=== PATIENT | female | born 1960 | race Hispanic/Latino ===

== ENCOUNTER 2017-03-26 13:15 | Observation (INO) | payer OTHER ==
[~2017-03-26] VITALS: Ht 160 cm; Wt 75.3 kg
--- OUTSIDE RECORDS SUMMARY | 2017-03-26 13:18 | XMS REPORT | Clinical Summary ---
Author Author [facility] Address Unknown Phone Unavailable Care Team Providers Care Foreign Exchange Dealer Name Role Phone Asked, Pcp PCP Unavailable Allergies No Known Allergies Current Medications Prescription Sig. Disp. Refills Start End Date Status Date PREMARIN 0.45 mg tablet 01/24/20 Active 17 losartan-hydrochlorothiaz 01/15/20 Active vimal (HYZAAR) 50-12.5 mg 17 per tablet zinc 50 mg tablet Take by mouth. Active calcium carbonate-vitamin Take 1 tablet by mouth 2 Active D2 500 mg(1,250mg) -200 (two) times a day. unit tablet cyanocobalamin 250 MCG Take 250 mcg by mouth Active tablet daily. aspirin (ECOTRIN) 81 MG Take 81 mg by mouth Active enteric coated tablet daily. riFAXimin (XIFAXAN) 550 Take 1 tablet (550 mg 42 tablet 0 02/14/19 02/28/19 mg tablet total) by mouth 3 (three) 18 18 times a day for 14 days. Active Problems Not on file Encounters Date Type Specialty Care Team Description 02/14/2017 Office Visit Gastroenterology Alyssa Gee MD Irritable bowel syndrome with diarrhea (Primary Dx) 09/07/2016 Telephone Gastroenterology Alyssa Gee MD after 03/25/2016 Social History Tobacco Use Types Packs/Day Years Used Date Never Smoker Smokeless Tobacco: Never Used Alcohol Use Drinks/Week oz/Week Comments Yes weekends Sex Assigned at Date Recorded Not on file Last Filed Vital Signs Vital Sign Reading Time Taken Blood Pressure 155/79 02/14/2017 2:47 PM CO FOUNDER AND PRESIDENT Pulse 62 02/14/2017 2:47 PM [employer] FOUND[employer] AND PRESIDENT Temperature - - Respiratory Rate - - Oxygen Saturation - - Inhaled Oxygen - - Concentration Weight 77 kg (169 lb 12.8 oz) 02/14/2017 2:47 PM [employer] PRESIDENT Height 160 cm (5' 3") 02/14/2017 2:47 PM [employer] FOUND[employer] AND PRESIDENT Body Mass Index 30.08 02/14/2017 2:47 PM [employer] FOUND[employer] AND PRESIDENT Plan of Treatment Health Maintenance Due Date Last Done Comments PAP SMEAR 1979 COLONOSCOPY 01/21/2008 MAMMOGRAM 01/21/2008 INFLUENZA VACCINE 09/12/2016 Results Not on fileafter 03/25/2016 Insurance Payer Benefit Subscriber ID Type Phone Address Plan / Group CIG[employer] CIGNA OPEN xxxxxxxxxxx HMO ACCESS/NET WORK
[2017-03-26] MEDS ORDERED: HYDROCHLOROTHIA25 MG PO (13:37)
[2017-03-26] MEDS ORDERED: PREMARIN0.625 MG PO (13:37)
[2017-03-26] MEDS ORDERED: LOSARTAN POTASS25 MG PO (13:37)
[2017-03-26] MEDS ORDERED: ASPIRIN 81 MG CHEW TAB PO ONE ×2 (14:00→16:00)
[2017-03-26 14:13] LABS: BASOPHILS % 0.4 % (0.0-1.0); EOSINOPHILS # (AUTO) 0.2 (0.0-0.4); EOSINOPHILS % 2.7 % (0.0-6.0); HEMATOCRIT 38.1 % (34.2-44.1); HEMOGLOBIN 12.7 g/dL (12.0-16.0); LYMPHOCYTES # (AUTO) 2.1 (1.0-3.2); LYMPHOCYTES % 27.1 % (18.0-39.1); MEAN CORPUSCULAR HEMOGLOBIN 29.8 pg (28-32); MEAN CORPUSCULAR HGB CONC 33.3 g/dL (31-35); MEAN CORPUSCULAR VOLUME 89.4 fL (81-99); MONOCYTES # (AUTO) 0.6 (0.2-0.8); MONOCYTES % 7.7 % (4.4-11.3); NEUTROPHILS # (AUTO) 4.7 (2.1-6.9); NEUTROPHILS % 61.4 % (38.7-80.0); PLATELET COUNT 214 x10e3/uL (140-360); RED BLOOD COUNT 4.26 x10e6/uL (3.6-5.1); RED CELL DISTRIBUTION WIDTH 12.5 % (11.7-14.4)
[2017-03-26 14:18] LABS: INR 1.01; PROTHROMBIN TIME 12.5 seconds (11.9-14.5)
[2017-03-26 14:19] LABS: PARTIAL THROMBOPLASTIN TIME 26.8 seconds (23.8-35.5)
[2017-03-26 14:29] LABS: ALANINE AMINOTRANSFERASE 17 IU/L (0-55); ALBUMIN 3.9 g/dL (3.5-5.0); ALKALINE PHOSPHATASE 64 IU/L (40-150); ANION GAP 12.8 mmol/L (8-16); BLOOD UREA NITROGEN 17 mg/dL (7-26); BUN/CREATININE RATIO 22 (6-25); CALCIUM 9.5 mg/dL (8.4-10.2); CARBON DIOXIDE 25 mmol/L (22-29); CHLORIDE 102 mmol/L (98-107); CREATINE KINASE 77 IU/L (29-168); CREATININE, SERUM 0.76 mg/dL (0.57-1.11); EST GLOMERULAR FILTRATION RATE > 60 ML/MIN (60-); GLUCOSE 88 mg/dL (74-118); POTASSIUM 3.8 mmol/L (3.5-5.1); SODIUM 136 mmol/L (136-145)
--- NOTE | 2017-03-26 14:30 | Diagnostic Imaging Report ---
PROCEDURE: CHEST SINGLE (PORTABLE) 1404 hrs. COMPARISON: None available for comparison. INDICATIONS: CHEST PAIN, RADIATING TO LEFT ARM FINDINGS: LUNGS: Clear. The pulmonary markings are normal. PLEURA: No effusions or pneumothorax. HEART \T\ MEDIASTINUM: Normal. BONES \T\ SOFT TISSUES: No focal osseous lesions. There is a centimeter size calcification adjacent to the left humeral head without evidence of donor site. Soft tissues are unremarkable. CONCLUSION: No acute cardiopulmonary process. Dictated by: Shar Louis M.D. on 03/26/2017 at 14:40 Electronically approved by: Shar Louis M.D. on 03/26/2017 at 14:40
[2017-03-26 14:53] LABS: BILIRUBIN,URINE NEGATIVE (NEGATIVE); CLARITY,URINE CLEAR (CLEAR); COLOR,URINE YELLOW (YELLOW); KETONES,URINE NEGATIVE (NEGATIVE); LEUKOCYTE ESTERASE ,URINE NEGATIVE (NEGATIVE); NITRITE,URINE NEGATIVE (NEGATIVE); PROTEIN,URINE DIPSTICK NEGATIVE (NEGATIVE); URINE UROBILINOGEN 0.2 mg/dL (0.2 - 1)
[2017-03-26 15:10] LABS: EPITHELIAL CELLS,URINE MODERATE /LPF
[2017-03-26] MEDS ORDERED: SODIUM CHLORIDE FLUSH 10 ML SYR INJ PRN (16:00)
[2017-03-26] MEDS ORDERED: ONDANSETRON HCL INJ 2 MG/ML VIAL IV PRN (16:00)
[2017-03-26] MEDS ORDERED: MORPHINE SULFATE 2 MG/ML SYR IV PRN (16:00)
--- OUTSIDE RECORDS SUMMARY | 2017-03-26 16:06 | XMS REPORT ---
[facility] Address Unknown Phone Unavailable Care Team Providers Care Rotary Shear Operator Name Role Phone BETZY DIAZ Unavailable Unavailable Problems This patient has no known problems. Allergies, Adverse Reactions, Alerts This patient has no known allergies or adverse reactions. Medications This patient has no known medications. Results Test Description Test Time Test Comments Text Results Atomic Results Result Comments CHEST SINGLE (PORTABLE) [place] [address] Patient Name: BO GAUTHIER MR #: [id number] : 1960 Age/Sex: 57/F Req #: [id number] Adm Physician: Ordered by: BETZY DIAZ MD Report #: [id number] Location: ER Room/Bed: Procedure: [id number] DX/CHEST SINGLE (PORTABLE) Exam Date: 03/26/17 Exam Time: 1350 REPORT STATUS: Signed PROCEDURE: CHEST SINGLE (PORTABLE) 1404 hrs. COMPARISON: None available for comparison. INDICATIONS: CHEST PAIN, RADIATING TO LEFT ARM FINDINGS : LUNGS: Clear. The pulmonary markings are normal. PLEURA: No effusions or pneumothorax. HEART T MEDIASTINUM: Normal. BONES T SOFT TISSUES: No focal osseous lesions. There is a centimeter size calcification adjacent to the left humeral head without evidence of donor site. Soft tissues are unremarkable. CONCLUSION: No acute cardiopulmonary process. Dictated by: Facundo Becerra M.D. on 2017 at 14:40 Electronically approved by: Facundo Becerra M.D. on 2017 at 14:40 Dictated By: FACUNDO BECERRA MD 1440 Transcribed By : CASSIDY on 03/26/17 1440 COPY TO: BETZY DIAZ MD
--- OUTSIDE RECORDS SUMMARY | 2017-03-26 16:06 | XMS REPORT | Clinical Summary ---
Author Author [facility] Organization [facility] Address Unknown Phone Unavailable Care Team Providers Care Adoption Counselor Name Role Phone Asked, Pcp PCP Unavailable [...] Taken Blood Pressure 155/79 02/14/2017 2:47 PM NATURAL RESOURCES MANAGER Pulse 62 02/14/2017 2:47 PM NATURAL RESOURCES MANAGER Temperature - - Respiratory Rate - - Oxygen Saturation - - Inhaled Oxygen - - Concentration Weight 77 kg (169 lb 12.8 oz) 02/14/2017 2:47 PM NATURAL RESOURCES MANAGER Height 160 cm (5' 3") 02/14/2017 2:47 PM NATURAL RESOURCES MANAGER Body Mass Index 30.08 02/14/2017 2:47 PM NATURAL RESOURCES MANAGER Plan of Treatment Health Maintenance Due Date Last Done Comments PAP SMEAR 1979 COLONOSCOPY 01/21/2008 MAMMOGRAM 01/21/2008 INFLUENZA VACCINE 09/12/2016 Results Not on fileafter 03/25/2016 Insurance Payer Benefit Subscriber ID Type Phone Address Plan / Group CIGNA CIGNA OPEN xxxxxxxxxxx HMO ACCESS/NET WORK
[2017-03-26] MEDS: FAMOTIDINE 20 MG TAB PO SCH (17:31)
[2017-03-26] MEDS: METOPROLOL TARTRATE 25 MG TAB PO SCH (17:31)
--- NOTE | 2017-03-26 17:37 | History and Physical ---
CHIEF COMPLAINT: This is a 57-year-old female with a history of hypertension and hyperlipidemia, shows up with chest pain. HISTORY OF PRESENTING ILLNESS: This is Ms. Longoria, who is a 57-year-old female with a history of hypertension controlled with losartan, hyperlipidemia controlled with diet, and with a history of estrogen replacement secondary to hysterectomy, was in her usual state of health until Sunday night the patient started to have chest pains described as pressure-like chest pain radiating to the shoulder and to the arm and pain also radiating to the back. Patient had this episode for about 2 days, and then last night the patient started with chest pain again, same characteristic, similar to intensity, radiating to the left arm and to the back, and this time patient's pain did not go away; and, therefore, the patient came here and was admitted for chest pain. PAST MEDICAL HISTORY: History of hypertension, history of hyperlipidemia. Medicines she takes at home are losartan and estrogen 0.45 mg. PAST SURGICAL HISTORY: History of hysterectomy. Otherwise noncontributory. SOCIAL HISTORY: No ETOH. No IV drug abuse. History of smoking in the past but has quit for 15 years. REVIEW OF SYSTEMS: Positive for chest pain. No shortness of breath. No nausea, vomiting, diarrhea. No constipation. No rectal bleeding. No hematochezia, no hematemesis. PHYSICAL EXAMINATION GENERAL: Patient is alert and oriented x3. HEENT: Normocephalic, atraumatic. Pupils react to light and accommodation. CARDIOVASCULAR: S1 and S2 normal. Regular rate and rhythm. Positive for chest pressure on palpation. ABDOMEN: Nontender, nondistended. EXTREMITIES: No clubbing, no cyanosis, no edema. LABS: On an EKG, bradycardic with LVH. Q-wave changes noted in the inferior leads. Chest x-ray normal. Blood chemistries were normal. Troponins were also normal. The patient also had a UA which showed urine only showed moderate amount of epithelial cells, no bacteria seen. ASSESSMENT: Chest pain, rule out cardiac. Troponin has been negative so far. Dr. Guzman has been consulted. Will go ahead and rule out and probably discharge her tomorrow morning and do a stress test as an outpatient basis. Her family history is noncontributory except for her brother, who had a coronary artery bypass when he was 59. Father and mother have no cardiac history. So, probably discharge in the morning and follow up with Dr. Guzman for an outpatient stress test. Job#: [id number] EV
[2017-03-26 18:00] VITALS: BP 178/78
[2017-03-26] MEDS: NITROGLYCERIN 2% OINT 1 GM PKT TOP SCH (18:28)
[2017-03-26 18:31] VITALS: BP 178/78
[2017-03-26 20:08] VITALS: BP 135/79
[2017-03-26 20:19] VITALS: BP 135/79
[2017-03-26 20:55] LABS: CREATINE KINASE MB 0.9 ng/mL (0.00-5.00)
[2017-03-26 22:10] VITALS: BP 135/79
[2017-03-27] VITALS: BP 97/66
[2017-03-27 04:00] VITALS: BP 100/63
[2017-03-27] MEDS: FAMOTIDINE 20 MG TAB PO SCH ×2 (04:59→14:55)
[2017-03-27] MEDS: METOPROLOL TARTRATE 25 MG TAB PO SCH ×2 (04:59→14:54)
[2017-03-27] MEDS: NITROGLYCERIN 2% OINT 1 GM PKT TOP SCH ×3 (06:00→12:00)
[2017-03-27 07:26] LABS: CHOL/HDL RATIO 3.9 (3.0-3.6)
[2017-03-27 07:34] LABS: CREATINE KINASE MB 0.6 ng/mL (0.00-5.00)
[2017-03-27 07:47] VITALS: BP_SYST 100; BP_SYST 123; BP_DIAS 63; BP_DIAS 69
[2017-03-27 07:54] VITALS: BP 123/69
[2017-03-27] MEDS ORDERED: ASPIRIN 81 MG ENTERIC COATED PO SCH (09:00)
[2017-03-27] MEDS ORDERED: HYDROCHLOROTHIAZIDE 25 MG TAB PO SCH (09:00)
[2017-03-27] MEDS ORDERED: LOSARTAN POTASSIUM 25 MG TAB PO SCH (09:00)
[2017-03-27 12:07] VITALS: BP 144/74
--- NOTE | 2017-03-27 13:43 | Consultation ---
DATE OF CONSULTATION: March 27, 2017 CARDIOLOGY CONSULTATION REQUESTING PHYSICIAN: Dr. Daniel Spann REASON FOR CONSULTATION: Chest pain. HISTORY OF PRESENT ILLNESS: This is a 57-year-old woman with a history of hypertension and hyperlipidemia, who presents with complaint of chest pain. She was in her usual state of health until Sunday when she experienced an episode of chest pressure. This episode was brief and resolved on its own spontaneously. However, this pain recurred on Sunday morning around 6:30 and lasted all day. She describes the chest pressure as 8/10 in severity with radiation down the left arm associated with nausea and dizziness. She denies any edema, orthopnea or PND. She did not note any aggravating or alleviating factors. The pain was not worsened with exertion. She presented to the ER for further evaluation. REVIEW OF SYSTEMS: Negative, except as per HPI. PAST MEDICAL HISTORY 1. Hypertension. 2. Hyperlipidemia. PAST SURGICAL HISTORY 1. Hysterectomy. 2. Tubal ligation. SOCIAL HISTORY: She smoked cigarettes socially but quit 10 years ago. She drinks alcohol occasionally. No illicit drugs. FAMILY HISTORY: Pertinent for brother with 3-vessel CABG in his 50s. ALLERGIES: PLEASE SEE MAR. MEDICATIONS: Please see medication list. PHYSICAL EXAMINATION VITAL SIGNS: Temperature 96.5 degrees, pulse 55, respiratory rate 18, blood pressure 123/69, oxygen saturation 96% on room air. GENERAL: Well-developed, well-nourished woman in no acute distress. HEENT: Normocephalic and atraumatic. Pupils are equal with no scleral icterus. NECK: Supple. No thyromegaly or cervical lymphadenopathy. No carotid bruit. LUNGS: Clear to auscultation bilaterally. No wheezes or crackles. CARDIOVASCULAR: Normal rate, regular rhythm. No murmur. Normal S1 and S2. ABDOMEN: Soft. Nontender. EXTREMITIES: No edema. CARDIAC MEDICATIONS 1. Losartan 50 mg p.o. daily. 2. Hydrochlorothiazide 12.5 mg p.o. daily. 3. Aspirin 81 mg p.o. q.a.m. 4. Metoprolol tartrate 25 mg p.o. q.12 h. LABS: WBC 7.68, hemoglobin 12.7, hematocrit 38.1, platelets 214. Sodium 136, potassium 3.8, chloride 102, CO2 25, BUN 17, creatinine 0.76. Troponin 0.001. BNP 75. Cholesterol 235, LDL 132, triglycerides 217, HDL 60. EKG: Sinus bradycardia, voltage criteria for LVH, T-wave abnormality, consider inferior ischemia. CHEST X-RAY: No acute cardiopulmonary process. IMPRESSION 1. Chest pain. 2. Hypertension. 3. Hyperlipidemia. RECOMMENDATIONS: This patient ruled out for myocardial infarction with serial cardiac biomarkers. Given her risk factors, recommend exercise nuclear stress test to be done. Echocardiogram has been ordered to evaluate for structural heart disease. Start the patient on atorvastatin given hyperlipidemia. Continue current cardiac medications otherwise. Thank you for this consult. We will continue to follow. Job#: [id number] ZARI
--- NOTE | 2017-03-27 17:55 | Cardiology Report ---
DATE OF STUDY: March 27, 2017 PROCEDURE TITLE Rest stress single isotope SPECT imaging with exercise stress and gated SPECT imaging. INDICATIONS: Chest pain. PROCEDURE: The patient performed treadmill exercise using a Sher protocol, exercising for 9 minutes 54 seconds to stage 4 and completing an estimated work load of 12.8 metabolic equivalents (METs). The test was terminated due to fatigue. The heart rate was 70 beats per minute at baseline and increased to 152 beats per minute at peak exercise, which was 94% of maximum predicted heart rate. The rest blood pressure was 120/83 and increased to 197/83 mmHg, which is a normal response. The patient did not develop any symptoms other than fatigue during the procedure. The resting electrocardiogram demonstrated normal sinus rhythm. There were no ST segment changes consistent with myocardial ischemia. Myocardial perfusion imaging was performed at rest following the injection of 11 millicuries of tetrofosmin. At peak exercise, the patient was injected with 27 millicuries of tetrofosmin and exercise was continued for 1 minute. Gated post rest tomographic imaging was performed. FINDINGS: The overall quality of study is good. Attenuation artifact was absent. Left ventricular cavity is noted to be normal size on the rest and stress studies. SPECT images demonstrate homogenous tracer distribution throughout the myocardium. Gated SPECT imaging reveals normal myocardial thickening and wall motion. Left ventricular ejection fraction was greater than 70%. IMPRESSION: Normal clinical hemodynamic and ECG exercise stress test. Myocardial perfusion imaging is normal. Overall left ventricular systolic function was normal without regional wall motion abnormalities. Job#: [id number]
== END 2017-03-27 18:26 | disposition home or self-care (01) ==
LOC: ER 13:15 → ERHOLD 16:03 → IMCU 17:25
PROVIDERS: ADMIT Family Medicine; ATTEND Family Medicine
DX: R07.89 Other chest pain (principal); I10 Essential (primary) hypertension; E78.5 Hyperlipidemia, unspecified; Z82.49 Family history of ischemic heart disease and other diseases of the circulatory system
CPT/HCPCS: 36415 ×2; 71045; 78452; 80053; 80061; 81001; 82550 ×2; 82553 ×2; 83880; 84484 ×2; 85025; 85610; 85730; 87086; 93005; 93017; 93306; 99284; A9502; G0378 ×2; J2270; J2405

== ENCOUNTER → 2019-01-29 | Day surgery (SDC) | payer OTHER ==
[2019-01-24 08:39] LABS: BASOPHILS % 0.3 % (0.0-1.0); EOSINOPHILS # (AUTO) 0.1 (0.0-0.4); EOSINOPHILS % 1.2 % (0.0-6.0); HEMATOCRIT 40.3 % (34.2-44.1); LYMPHOCYTES # (AUTO) 2.2 (1.0-3.2); LYMPHOCYTES % 25.2 % (18.0-39.1); MEAN CORPUSCULAR HEMOGLOBIN 28.4 pg (28-32); MEAN CORPUSCULAR HGB CONC 32.3 g/dL (31-35); MONOCYTES # (AUTO) 0.6 (0.2-0.8); MONOCYTES % 7.1 % (4.4-11.3); NEUTROPHILS # (AUTO) 5.6 (2.1-6.9); NEUTROPHILS % 64.9 % (38.7-80.0); PLATELET COUNT 242 x10e3/uL (140-360); RED BLOOD COUNT 4.58 x10e6/uL (3.6-5.1); RED CELL DISTRIBUTION WIDTH 12.3 % (11.7-14.4)
--- NOTE | 2019-01-24 08:54 | Diagnostic Imaging Report ---
EXAMINATION: CHEST 2 VIEWS INDICATION: Pre-admit. COMPARISON: None FINDINGS: TUBES and LINES: None. LUNGS: Lungs are moderately inflated. No evidence of lobar pneumonia or pulmonary edema. There is linear opacity in the right upper lung with possible nodular opacity. PLEURA: No pleural effusion or pneumothorax. HEART AND MEDIASTINUM: The cardiomediastinal silhouette is unremarkable. There are atherosclerotic calcifications within the aorta. BONES AND SOFT TISSUES: No acute osseous lesion. Soft tissues are unremarkable. UPPER ABDOMEN: No free air under the diaphragm. IMPRESSION: No acute radiographic abnormality. Linear opacity in the right upper lung with possible nodular opacity. This may represent atelectasis or scarring with superimposition of structures, however chest CT is recommended to exclude underlying nodule. Signed by: Dr. Kike Fierro MD on 01/24/2019 8:50 AM
[2019-01-24 09:11] LABS: ANION GAP 15.6 mmol/L (8-16); BLOOD UREA NITROGEN 20 mg/dL (7-26); BUN/CREATININE RATIO 24 (6-25); CALCIUM 10.2 mg/dL (8.4-10.2); CARBON DIOXIDE 26 mmol/L (22-29); CHLORIDE 104 mmol/L (98-107); CREATININE, SERUM 0.83 mg/dL (0.57-1.11); EST GLOMERULAR FILTRATION RATE > 60 ML/MIN (60-); GLUCOSE 100 mg/dL (74-118); POTASSIUM 4.6 mmol/L (3.5-5.1); SODIUM 141 mmol/L (136-145)
[~2019-01-29] MED LIST: ATROPINE SULFATE 1 MG/ML VIAL ONE; BUPIVACAINE 0.25%/EPI 30ML SDV INJ ONE; DEXAMETHASONE SOD PHOS INJ 4 MG/ML VIAL ONE; FENTANYL CITRATE/PF 100MCG/2 ML INJ ONE; HYDROCHLOROTHIA25 MG PO; KETOROLAC TROMETHAMINE 30 MG/ML VIAL ONE; LIDOCAINE HCL 2% LOCAL INJ 5 ML SDV VIAL INJ ONE; LOSARTAN POTASS25 MG PO; LOSARTAN-HCTZ1 EACH PO; MIDAZOLAM HCL 2 MG/2 ML VIAL ONE; MORPHINE SULFATE INJ 4 MG/ML INJ 1ML ONE; NEOSTIGMINE 1 MG/ML 10ML VIAL ONE; ONDANSETRON HCL INJ 2MG/ML 2ML 2 MG/ML VIAL ONE; PREMARIN0.625 MG PO; PROPOFOL IV EMULSION 10 MG/ML 20 ML VIAL ONE; ROCURONIUM BROMIDE 10 MG/ML 5ML VIAL ONE; SEVOFLURANE INHAL SOLN 250 ML PEN BTL ONE; ZINC SULFATE220 MG PO
[2019-01-29 11:05] VITALS: BP 126/81
--- NOTE | 2019-01-29 16:38 | Operative Report ---
DATE OF PROCEDURE: 01/29/2019 SURGEON: Misha Callahan MD PREOPERATIVE DIAGNOSIS: Cholecystitis and cholelithiasis. POSTOPERATIVE DIAGNOSIS: Cholecystitis and cholelithiasis. OPERATION PERFORMED: Laparoscopic cholecystectomy. PANEL MACHINE OPERATOR: Jose Callahan MD ANESTHESIA: General endotracheal. COMPLICATIONS: None. ESTIMATED BLOOD LOSS: Minimal. DESCRIPTION OF PROCEDURE: With the patient lying in bed in the supine position, under good general endotracheal anesthesia, and the abdomen was prepped with Betadine solution and draped in the usual manner. A Veress needle was introduced into the right upper quadrant and pneumoperitoneum was established without any difficulty. A 5 mm trocar was placed in the right subcostal region and a 5 mm video laparoscope was placed into the intraabdominal cavity. Video laparoscopy at this point, revealed some adhesions to the lower abdomen from the patient's previous surgeries, but the subumbilical space was clear. An 11 mm trocar was then placed through the umbilicus and a 10 mm video laparoscope was placed into the intraabdominal cavity. Two more 5 mm trocars were placed in the right subcostal region. Laparoscopy at this point, revealed the gallbladder to be partially intrahepatic at the top, otherwise rest of the abdominal exploration was within normal limits. The peritoneum overlying the neck of the gallbladder was then opened and the cystic artery was identified, it was cursing anterior and below the cystic duct. The cystic artery was then doubly clipped and divided. The cystic duct was then dissected circumferentially and followed to its junction with the common duct. The cystic duct was then doubly clipped and divided. The gallbladder was then slowly and carefully taken off the liver bed using the cautery scissors and perfect hemostasis was ascertained. The gallbladder was grasped through the umbilical port, placed in a pouch and removed. Video laparoscopy was then again carried out, the liver bed was found to be perfectly dry. All the excess fluid was aspirated. The pneumoperitoneum was evacuated and all the trocars were removed under direct vision. The midline fascia at the umbilicus was then closed with a yhomfc-rw-tepkm of 0 Vicryl. All layers were infiltrated on the way out with solution of 0.25% Marcaine. Subcutaneous tissue was approximated with 3-0 Vicryl and the skin was closed with subcuticular 5-0 Vicryl. Benzoin, Steri-Strips, and Band-Aids were applied. The sponge, lap, and needle count was correct. The patient tolerated the procedure well and returned to the recovery room in stable condition. MD ARLYN Merida/RUBY /[id number]
--- OUTSIDE RECORDS SUMMARY | 2019-01-31 13:50 | XMS REPORT ---
Author [facility] Address Unknown Phone Unavailable Care Team Providers Care Bag Hanger Name Role Phone Abebe ELLISON Unavailable Unavailable Niraj CAPELLAN Unavailable Unavailable Problems This patient has no known problems. Allergies, Adverse Reactions, Alerts This patient has no known allergies or adverse reactions. Medications This patient has no known medications. Results Test Description Test Time Test Comments Text Results Atomic Results Result Comments CHEST 2 VIEWS 2019-01-24 08:45:00 [place] [address] Patient Name: BO GAUTHIER MR #: [id number] : 1960 Age/Sex: 59/F Req #: [id number] Adm Physician: Ordered by: RICARDO ELLISON MD Report #: [id number] Location: OR Room/Bed: Procedure: [id number] DX/CHEST 2 VIEWS Exam Date: 01/24/19 Exam Time: 0830 REPORT STATUS: Signed EXAMINATION: CHEST 2 VIEWS INDICATION: Pre-admit. COMPARISON: None FINDINGS: TUBES and LINES: None. LUNGS: Lungs are moderately inflated. No evidence of lobar pneumonia or pulmonary edema. There is linear opacity in the right upper lung with possible nodular opacity. PLEURA: No pleural effusion or pneumothorax. HEART AND MEDIASTINUM: The cardiomediastinal silhouette is unremarkable. There are atherosclerotic calcifications within the aorta. BONES AND SOFT TISSUES: No acute osseous lesion. Soft tissues are unremarkable. UPPER ABDOMEN: No free air under the diaphragm. IMPRESSION: No acute radiographic abnormality. Linear opacity in the right upper lung with possible nodular opacity. This may represent atelectasis or scarring with superimposition of structures, however chest CT is recommended to exclude underlying nodule. Signed by: Dr. Dione Cooper MD on 01/24/2019 8:50 AM Dictated By: DIONE COOPER MD 9 Transcribed By: STEFF on 01/24/19849 COPY TO: RICARDO ELLISON MD Stress Test - Treadmill ONLY [place] [address] Patient Name : BO GAUTHIER MR #: [id number] : 1960 Age/Sex: 57/F Adm Physician : LUCIANA CAPELLAN MD Admit Date : 03/26/17 Location : [facility] Room/Bed : [place] [address] REPORT: Cardiology Report DATE OF STUDY: March 27, 2017 PROCEDURE TITLE Rest stress single isotope SPECT imaging with exercise stress and gated SPECT imaging. INDICATIONS: Chest pain. PROCEDURE: The patient performed treadmill exercise using a Sher protocol, exercising for 9 minutes 54 seconds to stage 4 and completing an estimated work load of 12.8 metabolic equivalents (METs). The test was terminated due to fatigue. The heart rate was 70 beats per minute at baseline and increased to 152 beats per minute at peak exercise, which was 94% of maximum predicted heart rate. The rest blood pressure was 120/83 and increased to 197/83 mmHg, which is a normal response. The patient did not develop any symptoms other than fatigue during the procedure. The resting electrocardiogram demonstrated normal sinus rhythm. There were no ST segment changes consistent with myocardial ischemia. Myocardial perfusion imaging was performed at rest following the injection of 11 millicuries of tetrofosmin. At peak exercise, the patient was injected with 27 millicuries of tetrofosmin and exercise was continued for 1 minute. Gated post rest tomographic imaging was performed. FINDINGS: The overall quality of study is good. Attenuation artifact was absent. Left ventricular cavity is noted to be normal size on the rest and stress studies. SPECT images demonstrate homogenous tracer distribution throughout the myocardium. Gated SPECT imaging reveals normal myocardial thickening and wall motion. Left ventricular ejection fraction was greater than 70%. IMPRESSION: Normal clinical hemodynamic and ECG exercise stress test. Myocardial perfusion imaging is normal. Overall left ventricular systolic function was normal without regional wall motion abnormalities. Job#: [id number] Signature Date Dictated By: FRED MORTON MD Transcribed By: SMEDS on 03/27/17 <Electronically signed by FRED MORTON MD><<Signature on File>>05/10/17 5857 COPY TO: CHEST SINGLE (PORTABLE) [place] [address] Patient Name: BO GAUTHIER MR #: [id number] : 1960 Age/Sex: 57/F Req #: [id number] Adm Physician: Ordered by: BETZY DIAZ MD Report #: [id number] Location: ER Room/Bed: Procedure: [id number] DX/CHEST SINGLE (PORTABLE) Exam Date: 03/26/17 Exam Time: 1350 REPORT STATUS: Signed PROCEDURE: CHEST SINGLE (PORTABLE) 1404 hrs. COMPARISON: None available for comparison. INDICATIONS: CHEST PAIN, RADIATING TO LEFT ARM FINDINGS: LUNGS: Clear. The pulmonary markings are normal. PLEURA: No effusions or pneumothorax. HEART T MEDIASTINUM: Normal. BONES T SOFT TISSUES: No focal osseous lesions. There is a centimeter size calcification adjacent to the left humeral head without evidence of donor site. Soft tissues are unremarkable. CONCLUSION: No acute cardiopulmonary process. Dictated by: Facundo Louis M.D. on 03/26/2017 at 14:40 Electronically approved by: Facundo Louis M.D. on 03/26/2017 at 14:40 Dictated By: FACUNDO LOUIS MD 1440 Transcribed By: CASSIDY on 03/26/17 1440 COPY TO: BETZY DIAZ MD
== END | disposition home or self-care (01) ==
LOC: OR 05:33
PROVIDERS: ATTEND Surgery
DX: K80.10 Calculus of gallbladder with chronic cholecystitis without obstruction (principal); Z01.810 Encounter for preprocedural cardiovascular examination; Z01.812 Encounter for preprocedural laboratory examination; Z01.811 Encounter for preprocedural respiratory examination; G47.33 Obstructive sleep apnea (adult) (pediatric); I10 Essential (primary) hypertension; D13.5 Benign neoplasm of extrahepatic bile ducts
CPT/HCPCS: 36415; 47562; 71046; 80048; 85025; 88304; 93005; C1766; J0461; J1100; J1885; J2001; J2250; J2270; J2405; J2704; J2710; J3010